=== PATIENT | female | born 1940 | race Caucasian/White ===

== ENCOUNTER 2017-08-10 07:36 | Outpatient (CLI) | payer MEDICARE, OTHER ==
[~2017-08-10] VITALS: Ht 154.9 cm; Wt 84.1 kg
--- NOTE | ~2017-08-10 | HEMODYNAMI ---
PATIENT:TRINI DOUGLAS MEDICAL RECORD: [id number] : 44 LOCATION:[facility] ADMISSION DATE: 08/10/17 Generatedon:08/10/201710:28 Patient name: TRINI DOUGLAS Patient #: [id number] SSN: : 1940 Date of study: 08/10/2017 Page: Of Hemodynamic Procedure Report Patient Data Patient Demographics Procedure consent was obtained First Name: TRINI Gender: Female Last Name: MISAEL : 1940 Patient #: [id number] Age: 76 year(s) Race: Unknown Additional ID: [id number] Contact details [address]: [address] [place] [address] State: [place] City: [place] Zip code: [address] Past Medical History Allergies Allergen Reaction Date Comments Reported Other allergy 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 Admission Admission Data Admission Date: 08/10/2017 Admission Time: 7:36 Lab Results Lab Result Date: 08/10/2017 Lab Result Time: 0:00 Biochemistry Name Units Result Min Max BUN mg/dl 12 --(-*--)-- 7 18 Creatinine mg/dl 0.6 --(*---)-- 0.6 1.3 CBC Name Units Result Min Max Hemoglobin g/dl 13.5 --(*---)-- 13.5 17.5 Procedure Procedure Types Cath Procedure Diagnostic Procedure [facility] w/Coronaries Sedation Charges Moderate Sedation up to 15 minutes PCI Procedure Coronary Stent Coronary Stent Initial Procedure Description Procedure Date Procedure Date: 08/10/2017 Procedure Start Time: 10:07 Procedure End Time: 10:27 Procedure Staff Name Function Gus Mahmood MD Performing Physician Nohemy Kumar RT Monitor Rico Bundy RN Nurse Evita Bacon RT Scrub Procedure Data Cath Procedure Fluoroscopy Diagnostic fluoroscopy Total fluoroscopy Time: 5.7 time: 5.7 min min Diagnostic fluoroscopy Total fluoroscopy dose: 680 dose: 680 mGy mGy Contrast Material Contrast Material Type Amount (ml) Isovue 300 110 Entry Location Entry Primary Successful Side Size Upsize Upsize Entry Closure Spivey ccessful Closure Location (Fr) 1 (Fr) 2 (Fr) Remarks Device Remarks Radial Right 6 Fr Mechanical artery Short Compression Estimated blood loss: 11 ml Diagnostic catheters Device Type Used For End Catheter Placement DIAGNOSTIC Glen 110cm 5 Procedure Fr catheter ([id number]) Procedure Complications No complications Procedure Medications Medication Administration Route Dosage 0.9% NaCl I.V. 100 ml/hr Oxygen NC 2 l/min Heparin Flush Bag added to field 2 bags (1000units/500ml NS) Lidocaine 2% added to field 20 Radial Cocktail added to field 1 syringe (Verapomil 2mg/Nitro 400mcg/Heparin 1500units) Versed 1 mg Fentanyl I.V. 50 mcg Fentanyl I.V. 25 mcg Versed I.V. 0.5 mg Radial Cocktail I.A. 1 syringe (Verapomil 2mg/Nitro 400mcg/Heparin 1500units) Heparin Bolus I.V. 4000 units Hemodynamics Rest HGB: 13.5 (g/dl) Heart Rate: 61 (bpm) Snapshots Pre Cath Intra NCS Post Cath Vital Signs Time Heart Resp SPO2 etCO2 NIBP (mmHg) Rhythm Pain Sedation Rate (ipm) (%) (mmHg) Status Level (bpm) 9:47:51 64 23 96 16.6 156/76(124) NSR 0 (11) 10(A) , No pain 9:52:27 63 14 94 1.5 134/71(106) NSR 0 (11) 10(A) , No pain 9:57:06 61 14 96 23.4 128/63(101) NSR 0 (11) 10(A) , No pain 10:01:42 61 15 96 17.3 129/65(98) NSR 0 (11) 10(A) , No pain 10:06:19 59 15 96 19.6 129/61(100) NSR 0 (11) 9(A) , No pain 10:10:57 63 13 92 9 122/59(84) NSR 0 (11) 9(A) , No pain 10:15:34 65 14 95 2.2 121/59(102) NSR 0 (11) 9(A) , No pain 10:20:37 68 14 96 4.5 159/83(128) NSR 0 (11) 9(A) , No pain 10:25:36 69 17 97 3 Measuring NSR 0 (11) 9(A) , No pain 10:25:50 66 16 97 3 166/79(132) NSR 0 (11) 9(A) , No pain Medications Time Medication Route Dose Verified Delivered Reason Note s Effectiveness by by 9:50:41 0.9% NaCl I.V. 100 Rico Rico Per physician ml/hr Niharika Bundy RN RN 9:50:51 Oxygen NC 2 l/min Rico Rico Per physician Niharika Bundy RN RN 9:51:02 Heparin Flush added 2 bags Rico Rico used for Bag to Niharika Bundy procedure (1000units/500ml RN RN NS) 9:51:14 Lidocaine 2% added 20ml Rico Rico for local to vial Lorigan Niharika anesthetic field RADER RN 9:51:26 Radial Cocktail added 1 Rico Rico used for (Verapomil to syringe Niharika Bundy procedure 2mg/Nitro field RADER RN 400mcg/Heparin 1500units) 10:03:34 Versed 1 mg Rico Rico for sedation Niharika Bundy RN RN 10:03:44 Fentanyl I.V. 50 mcg Rico Rico for sedation Niharika Bundy RN RN 10:05:34 Fentanyl I.V. 25 mcg Rico Rico for sedation Niharika Bundy RN RN 10:05:43 Versed I.V. 0.5 mg Rico Rico for sedation Niharika Bundy RN RN 10:08:36 Radial Cocktail I.A. 1 Rico Gus for (Verapomil syringe Niharika paul 2mg/Nitro RN 400mcg/Heparin 1500units) 10:12:41 Heparin Bolus I.V. 4000 Rico Rico for units Niharika Bundy anticoagulation RN cullet crusher and washer Log Time Note 9:36:03 Rico Bundy RN sent for patient. Start room use. 9:36:04 Time tracking: Regular hours 9:36:07 Plan of Care:Hemodynamics will remain stable., Cardiac rhythm will remain stable., Comfort level will be maintained., Respiratory function will remain adequate., Patient/ family verbilizes understanding of procedure., Procedure tolerated without complication., Recovers from procedure without complications.. 9:40:41 Patient received from Pre/Post Procedure Room to CCL 1 Alert and oriented. Tansferred to table in Supine position. 9:40:42 Warm blankets applied, and sherlyn hugger turned on for patient comfort. 9:40:42 Correct patient and procedure confirmed by team. 9:40:44 Signed procedure consent form obtained from patient. 9:40:44 ECG and BP/O2 sat monitors applied to patient. 9:47:04 Vital chart was started 9:47:07 Rhythm: sinus rhythm 9:50:41 0.9% NaCl 100 ml/hr I.V. was administered by Rico Bundy RN; Per physician; 9:50:51 Oxygen 2 l/min NC was administered by Rico Bundy RN; Per physician; 9:51:02 Heparin Flush Bag (1000units/500ml NS) 2 bags added to field was administered by Rico Bundy RN; used for procedure; 9:51:14 Lidocaine 2% 20ml vial added to field was administered by Rico Bundy RN; for local anesthetic; 9:51:26 Radial Cocktail (Verapomil 2mg/Nitro 400mcg/Heparin 1500units) 1 syringe added to field was administered by Rioc Bundy RN; used for procedure; 9:54:52 Baseline sample Acquired. 9:55:03 Full Disclosure recording started 9:55:22 H&P Date Dictated: 07/25/2017 Within 30 days and on chart.. 9:55:23 Pre-procedure instructions explained to patient. 9:55:24 Pre-op teaching completed and patient verbalized understanding. 9:55:26 Family in patients room. 9:55:27 Patient NPO since Midnight. 9:55:36 Patient allergic to Other allergyCRESTOR 9:55:38 Is the patient allergic to Iodine/contrast media? No. 9:55:40 Is patient on blood thinner?Yes 9:55:42 ACC The patient was administered the following blood thiners within the last 24 hours: ACCPlavix 9:55:44 Patient diabetic? Yes. 9:55:45 If diabetic: On Metformin? Yes 9:55:49 If on Metformin: Last Dose? 08/08/2017 9:55:51 Patient not . Patient is over age 55. 9:55:53 Previous problem with sedation/anesthesia? No ? 9:55:54 Snore? Yes 9:55:55 Sleep apnea? No 9:55:56 Deviated septum? No 9:55:57 Opens mouth fully? Yes 9:55:58 Sticks out tongue? Yes 9:55:59 Airway obstruction? No ? 9:56:02 Dentures? No ? 9:56:04 Modified Balta's test Ulnar < 7 seconds 9:56:07 Patient pain scale 0/10 ?. 9:56:21 IV patent on arrival in left antecubital with 0.9% NaCl at [facility]. 9:57:46 Lab Result : Creatinine 0.6 mg/dl 9:57:46 Lab Result : BUN 12 mg/dl 9:57:46 Lab Result : Hemoglobin 13.5 g/dl 9:57:49 Lab results completed and on chart. 9:57:52 Right Radial & Right Groin area was prepped with chlora-prep and draped in sterile fashion 9:57:53 Alarms reviewed by R. N. 9:57:54 Sharps counted by scrub and verified by R.N. 9:59:29 Zero performed for pressure channel P1 9:59:33 Zero performed for pressure channel P1 9:59:47 Use device set Radial Dx or PCI 9:59:50 ACIST Syringe (39040) opened to sterile field. 9:59:51 Bag Decanter (2002) opened to sterile field. 9:59:53 ACIST Hand Control (48259) opened to sterile field. 9:59:53 ACIST Manifold (56709) opened to sterile field. 9:59:54 Tegaderm 4 x 4 (1626W) opened to sterile field. 9:59:55 Medline Cath Pack ([id number]) opened to sterile field. 9:59:56 SHEATH 6FR Slender ([id number]) opened to sterile field. 9:59:56 DIAGNOSTIC WIRE .035 260cm J wire (748452) opened to sterile field. 9:59:57 MBrace Wrist Support ([id number]) opened to sterile field. 10:00:49 Zero performed for pressure channel P1 10:00:53 Zero performed for pressure channel P1 10:03:13 --------ALL STOP TIME OUT------ 10:03:14 Final Timeout: patient, procedure, and site verified with staff and physician. All members of the team are in agreement. 10:03:16 Right Radial & Right Groin site verified by team. 10:03:23 Physical assessment completed. ASA score P 2 - A patient with mild systemic disease as per Gus Mahmood MD. 10:03:27 Sedation plan: IV Moderate Sedation Medication:Versed, Fentanyl 10:03:34 Versed 1 mg was administered by Rico Bundy RN; for sedation; 10:03:44 Fentanyl 50 mcg I.V. was administered by Rico Bundy RN; for sedation; 10:05:34 Fentanyl 25 mcg I.V. was administered by Rico Bundy RN; for sedation; 10:05:43 Versed 0.5 mg I.V. was administered by Rico Bundy RN; for sedation; 10:06:51 Procedure started. 10:07:25 Local anesthetic to right radial artery with Lidocaine 2% by Gus Mahmood MD.INITIAL ACCESS ONLY 10:07:49 A 6 Fr Short sheath was inserted into the Right Radial artery 10:08:04 A DIAGNOSTIC Glen 110cm 5 Fr catheter (059135) was advanced over the wire and used for Procedure. 10:08:36 Radial Cocktail (Verapomil 2mg/Nitro 400mcg/Heparin 1500units) 1 syringe I.A. was administered by Gus Mahmood MD; for vasodilation; 10:08:42 LV gram done using EAGLE 10:08:45 Injector settings: Ml/sec: 5, Volume: 15, 10:09:22 EF : 60 % 10:09:52 LCA angiography performed. 10:10:42 RCA angiography performed. 10:10:43 Catheter removed. 10:10:58 INFLATOR Merit BasixCompak (UM4063) opened to sterile field. 10:11:51 GUIDE 6FR XBLAD 3.5 catheter (98868933) opened to sterile field. 10:11:52 CHOICE PT Extra Support 182cm wire ([id number]) opened to sterile field. 10:12:09 6 Fr XBLAD 3.5 guide catheter was inserted over the wire 10:12:41 Heparin Bolus 4000 units I.V. was administered by Rico Bundy RN; for anticoagulation; 10:12:54 CHOICE PT ES 182 wire advanced. 10:13:56 WIRE REMOVED 10:14:16 CHOICE PT Extra Support 182cm wire ([id number]) opened to sterile field. 10:14:32 CHOICE PT ES 182 wire advanced. 10:14:56 Wire advanced across lesion. 10:16:08 The FRANSICO RX 2.25 x 26 stent ([id number]) was advanced then removed because of failure to cross lesion 10:17:14 WILL BALLOON FIRST 10:18:21 Inflation number: 1 A EUPHORA 2.0 x 30 Balloon ([id number]) was prepped and advanced across the Mid LAD, then inflated to 17 ANDREA for 0:10 (min:sec). 10:18:42 Inflation number: 2 The EUPHORA 2.0 x 30 Balloon ([id number]) was reinflated across the Mid LAD, to 19 ANDREA for 0:10 (min:sec). 10:18:57 Balloon removed over the wire. 10:20:16 Inflation Number: 3 A FRANSICO RX 2.25 x 26 stent ([id number]) was prepped and advanced across the Mid LAD. The stent was deployed at 13 ANDREA for 0:10 (min:sec). 10:20:57 Stent catheter was removed intact over wire. 10:22:40 Inflation Number: 1 A FRANSICO RX 2.5 x 18 stent ([id number]) was prepped and advanced across the Prox LAD. The stent was deployed at 13 ANDREA for 0:10 (min:sec). 10:22:47 Stent catheter was removed intact over wire. 10:22:48 Wire removed. 10:22:49 Guide catheter removed. 10:23:12 TR BAND Standard ([id number]) opened to sterile field. 10:23:21 Sheath removed intact; hemostasis achieved with Mechanical Compression to the Right Radial artery. 10:23:47 Procedure ended.(Physican Out) 10:24:17 Fluoroscopy time 05.70 minutes. 10:24:21 Fluoroscopy dose: 680 mGy 10:24:21 Flurop Dose total: 680 10:24:25 Contrast amount:Isovue 300 110ml. 10:24:27 Sharps counted by scrub and verified by R.N. 10:24:29 TR band inflated with 10cc of air. 10:24:42 Post-procedure physical assessment completed. ASA score P 2 - A patient with mild systemic disease as per Gus Mahmood MD. 10:24:46 Post procedure rhythm: unchanged. 10:24:50 Estimated blood loss: 11 ml 10:24:51 Post procedure instruction explained to patient.Patient verbalizes understanding. 10:24:52 Patient needs reinforcement of post procedure teaching. 10:26:39 Procedure type changed to Cath procedure, Diagnostic procedure, LHC, LHC w/Coronaries, Sedation Charges, Moderate Sedation up to 15 minutes, PCI procedure, Coronary Stent, Coronary Stent Initial 10:27:33 Procedure and supply charges have been captured, reviewed, submitted and are correct. 10:27:36 Procedure Complication : No complications 10:27:38 Vital chart was stopped 10:27:39 See physician's report for complete and final results. 10:27:40 Report given to Pre/Post Procedure Room. 10::43 Patient transfered to Pre/Post Procedure Room with Bed. 10:27:45 Procedure ended. 10:27:45 Full Disclosure recording stopped 10:27:47 End room use (Document Last) Intervention Summary Intervention Notes Time ActionType Lesion and Equipment Used Action# Pressure Duration Attributes 10:16:08 Discard FRANSICO RX 2.25 x Stent 26 stent ([id number]) 10:18:21 Inflate Mid LAD EUPHORA 2.0 x 1 17 00:10 balloon 30 Balloon ([id number]) 10:18:42 Reinflate Mid LAD EUPHORA 2.0 x 2 19 00:10 balloon 30 Balloon ([id number]) 10:20:16 Place stent Mid LAD FRANSICO RX 2.25 x 3 13 00:10 26 stent ([id number]) 10:22:40 Place stent Prox LAD FRANSICO RX 2.5 x 1 13 00:10 18 stent ([id number]) Device Usage Item Name Manufacture Quantity Catalog Number Hospital Part Current M inimal Lot# / Charge Number Stock Stock Serial# Code ACIST Syringe Acist 1 69799 283701 015703 270171 2 0 (94926) Medical Systems Inc Bag Decanter Microtek 1 193659 71616 371845 5 () Medical Inc. ACIST Hand Acist 1 98866 387682 223288 248514 5 Control Medical (67692) Systems Inc ACIST Manifold Acist 1 99349 440222 587923 912521 5 (69220) Medical Systems Inc Tegaderm 4 x 4 3M 1 1626W 264584 756824 787521 5 (1626W) Medline Cath Cardinal 1 [id number] 292561 30886 279266 5 Pack Health ([id number]) SHEATH 6FR Terumo 1 [id number] 191095 519935 110680 4 0 Slender ([id number]) DIAGNOSTIC St Tai 1 906445 856273 080679 804981 3 0 WIRE .035 260cm J wire (615369) MBrace Wrist Advanced 1 140-0250-00 982050 93057 156411 5 Support Vascular ([id number]) Dynamics DIAGNOSTIC Terumo 1 40-7253 975316 427514 100904 5 Glen 110cm 5 Fr catheter (095846) INFLATOR Merit Merit 1 JO1069 359139 861082 224714 1 5 OchreSoft Technologies[employer]El[employer] Software Medical (PU1995) GUIDE 6FR Cardinal 1 [id number] 410494 861528 911925 1 0 XBLAD 3.5 Health catheter (19706047) CHOICE PT [place] 2 [id number] 747717 570542 383194 5 Extra Support Scientific 182cm wire ([id number]) FRANSICO RX 2.25 x Medtronic 1 [id number] 922771 5512905 088982 5 [id number] 26 stent ([id number]) EUPHORA 2.0 x Medtronic 1 [id number] 435687 210955 452575 5 [id number] 30 Balloon ([id number]) FRANSICO RX 2.5 x Medtronic 1 [id number] 542775 5616643 614612 5 [id number] 18 stent ([id number]) TR BAND Terumo 1 [id number] 937535 269145 838280 4 0 Standard ([id number]) Signature Audit [place] Stage Time Signature Unsigned Intra-Procedure 08/10/2017 Nohemy Kumar 10:28:03 AM RT(R) Signatures Monitor : Nohemy Kumar Signature : RT Date : Time : [facility] [address] [place] [address]
--- NOTE | ~2017-08-10 | OP ---
PATIENT NAME: TRINI DOUGLAS MEDICAL RECORD: [id number] :44 LOCATION:D.CAT ADMISSION DATE: SURGEON: JOSÉ LUIS JONES MD DATE OF OPERATION: 08/10/2017 PROCEDURES: 1. PTCA stent LAD. 2. Left heart catheterization. 3. Selective coronary angiography. 4. Left ventriculogram. INDICATION: Angina and coronary artery disease. PROCEDURE IN DETAIL: After informed consent was obtained and after detailed explanation of risks, benefits as well as alternative therapies, the patient elected to proceed with angiogram and angioplasty. The right radial area was prepped and draped in normal sterile fashion. Right radial artery was cannulated via modified Seldinger technique with placement of 6-[place] sheath. All catheters exchanged through this sheath. FINDINGS: The left ventriculogram was performed in the standard 30-degree EAGLE view and reveals good cardiac wall motion throughout all segments. Overall ejection fraction is estimated at 60%. SELECTIVE CORONARY ANGIOGRAPHY: 1. Left main showed no significant angiographic disease. 2. Left anterior descending has a long area of multiple 80% to 90% stenoses. 3. Left circumflex shows moderate irregularities, but no discrete flow-limiting stenosis. 4. Right coronary has at least 2-3 areas of 70% greater stenosis. PTCA STENT OF THE LAD: The stents used were 2.25 x 26 and 2.5 x 18, both [place] stents. Result was 0% residual stenosis. OVERALL IMPRESSION: Successful PTCA stent of the LAD going from multiple areas of 80% to 90% stenosis to 0% residual stenosis. PLAN: PTCA stent of the RCA in the near future. TRANSINT:[id number] Voice Confirmation ID: [id number] DOCUMENT ID: [id number] JOSÉ LUIS JONES MD at 1153 CC: [id number] DICTATION DATE: 08/10/17 1028 LINING CLEANER: 08/10/17 1108 DEP CLI 08/10/[address] [address]
[2017-08-10] MEDS ORDERED: GLUCOPHAGE500 MG PO (08:34)
[2017-08-10] MEDS ORDERED: TRAZODONE HCL50 MG PO (08:34)
[2017-08-10] MEDS ORDERED: ZANTAC 7575 MG PO (08:35)
[2017-08-10] MEDS ORDERED: OMEPRAZOLE20 M1 PO (08:35)
[2017-08-10] MEDS ORDERED: PLAVIX75 MG PO ×2 (08:35→11:10)
[2017-08-10] MEDS ORDERED: CO Q-10100 MG PO (08:36)
[2017-08-10] MEDS ORDERED: PRAVACHOL40 MG PO (08:36)
[2017-08-10] MEDS ORDERED: OMEGA 3 FISH OI1 CAP PO (08:37)
[2017-08-10] MEDS ORDERED: CINNAMON500 MG PO (08:37)
[2017-08-10 08:48] VITALS: BP 166/60; Ht 154.9 cm; Wt 84.1 kg
[2017-08-10 08:52] LABS: BASOPHILS 0.1 % (0-2); EOSINOPHILS 3.1 % (0-7); HEMATOCRIT 40.2 % (36.0-48.0); HEMOGLOBIN 13.5 g/dL (12-16); IMMATURE GRANULOCYTES 0.1 % (0-5); MCHC 33.6 g/dL (31.0-37.0); MCV 89.3 fL (80.0-100.0); MEAN PLATELET VOLUME 10.5 fL (7.4-10.4); MONOCYTES 7.8 % (2-11); NEUTROPHILS 57.9 % (40-80); PLATELET COUNT 146 10x3/uL (130-400); RDW 12.4 % (11.5-14.5); WBC 7.7 10x3/uL (4.8-10.8)
[2017-08-10 09:11] LABS: CALC OSMOLALITY 281 mosm/kg (275-300); CALCIUM 9.3 mg/dL (8.5-10.1); CARBON DIOXIDE 26.5 mmol/L (21.0-32.0); CHLORIDE - SERUM 103 mmol/L (98-107); CREATININE - SERUM 0.6 mg/dL (0.6-1.3); GLUCOSE 122 mg/dL (74-106); POTASSIUM - SERUM 4.4 mmol/L (3.5-5.1); SODIUM 141 mmol/L (136-145); UREA NITROGEN 12 mg/dL (7-18); eGFR NON AFRICAN AMERICAN > 90 mL/min (90-120)
[2017-08-10] MEDS ORDERED: BAYER CHEWABLE81 MG PO ×2 (11:12→11:13)
== END 2017-08-10 15:41 | disposition home or self-care (01) ==
LOC: D.CATH 07:36
PROVIDERS: Internal Medicine Interventional Cardiology
DX: I20.9 Angina pectoris, unspecified (principal); E78.5 Hyperlipidemia, unspecified; E66.9 Obesity, unspecified; Z01.812 Encounter for preprocedural laboratory examination
CPT/HCPCS: 93458; C9600

== ENCOUNTER → 2017-08-12 08:26 | Outpatient (CLI) | payer MEDICARE, OTHER ==
[~2017-08-12] VITALS: Ht 154.9 cm; Wt 82.7 kg
--- NOTE | ~2017-08-12 | HP ---
PATIENT: TRINI DOUGLAS MEDICAL RECORD: [id number] ACCOUNT: [id number] LOCATION:[facility]OS[facility] : 44 ADMISSION DATE: 08/12/17 HISTORY AND PHYSICAL EXAMINATION ADMITTING DIAGNOSES: 1. Angina. 2. Coronary artery disease. 3. Recent PTCA stent to LAD with concomitant disease to RCA. 4. Hypertension. 5. Hyperlipidemia. HISTORY OF PRESENT ILLNESS: Mrs. Douglas presented with unstable anginal symptomatology, found to have 2-vessel coronary artery disease, underwent successful PTCA stent of the LAD. She is now brought back for PTCA stent of the RCA. PHYSICAL EXAMINATION: GENERAL APPEARANCE: Well-nourished, well-developed, appears stated age. Level of distress, comfortable. PSYCHIATRIC: Mental status, alert, normal affect. Orientation, oriented to time, place and person. EYES: Lids and conjunctiva, noninjected. No discharge, no pallor. ENT: Lips, teeth, gums, normal dentition. Oropharynx, no cyanosis, no pallor. NECK: Carotid arteries, bilateral normal upstroke, no bruits, no thrills. JUGULAR VEINS: No jugular venous pressure or distention. CERVICAL LYMPH NODES: Nontender, nonenlarged. THYROID: Not enlarged. Nontender. No nodules. LUNGS: Respiratory effort, unlabored. CHEST: Normal curvature. No thoracic deformity. No chest wall tenderness. Percussion, resonant. Auscultation, clear. No wheezes, no rales, no rhonchi. CARDIOVASCULAR: Precordial exam, nondisplaced. No heaves or pericardial thrills. Rate and rhythm, regular. Heart sounds, normal S1, normal S2. No S3, no gallop, no rub. Systolic murmur, not heard. Diastolic murmur, not heard. EXTREMITIES: No cyanosis, no edema. Peripheral pulses, full and equal in all extremities, except as noted. No bruits appreciated. ABDOMEN: Soft, nondistended. Normal aorta. No bruit. Nontender. No masses. Liver, nontender, no hepatomegaly. Spleen, nontender, no splenomegaly. MUSCULOSKELETAL: No joint tenderness. No joint swelling. No erythema. NEUROLOGICAL: Normal gait, normal strength, normal tone. SKIN: Warm and dry. REVIEW OF SYSTEMS: The patient reports easy bruising but reports no swollen glands. The patient reports no fever, no night sweats, no significant weight gain, no significant weight loss. No significant exercise tolerance. The patient reports no dry eyes, no irritation, no vision change. Patient reports no difficulty hearing and no ear pain. Patient reports no frequent nose bleeds or nose and sinus problems. Patient reports on arm pain on exertion. No shortness of breath while lying down. No history of heart murmur. Patient reports no cough, no wheezing or coughing up blood. Patient reports no abdominal pain, no vomiting. Normal appetite. No diarrhea and not vomiting blood. No nausea and no constipation. Patient reports no incontinence. No difficulty urinating. No hematuria. No increased frequency. Patient reports no muscle aches. No weakness, no arthralgias, no back pain. No swelling of the extremities. Patient reports no abnormal mole, no jaundice, no rashes. Reports HISTORY AND PHYSICAL [id number] DMITRIY DOUGLASLDA R no loss of consciousness. No weakness and no numbness. No seizures, dizziness, or headaches. The patient reports no depression, no sleep disturbance, feeling safe in a relationship and no alcohol abuse. Patient reports on fatigue. Reports no runny nose or sinus pressure. No itching, no hives, and no frequent sneezing. OVERALL IMPRESSION: Anginal symptomatology with significant disease of the RCA. We will proceed with transcatheter revascularization of the RCA. TRANSINT:[id number] Voice Confirmation ID: [id number] DOCUMENT ID: [id number] JOSÉ LUIS JONES MD at 1153 CC: [id number] DICTATION DATE: 08/12/17 1040 RELIABILITY MANAGER: 08/12/17 1056 [facility] [address] [place] [address]
--- NOTE | ~2017-08-12 | OP ---
PATIENT NAME: TRINI DOUGLAS MEDICAL RECORD: [id number] :44 LOCATION:D.CAT ADMISSION DATE: SURGEON: JOSÉ LUIS JONES MD DATE OF OPERATION: 08/12/2017 PROCEDURES: 1. PTCA stent to RCA. 2. Selective coronary angiography. INDICATION: Angina and coronary artery disease. PROCEDURE IN DETAIL: After informed consent was obtained and after a detailed explanation of the risks, benefits as well as alternative therapies, the patient elected to proceed with angiogram and angioplasty. The right femoral area was prepped and draped in normal sterile fashion. Right femoral artery was cannulated via modified Seldinger technique with placement of 6-[place] sheath. All catheters exchanged through this sheath. FINDINGS: The right coronary artery has multiple areas of greater than 80% stenosis. This was addressed with a 3.5 x 15 and 3.0 x 12, both Porfirio stents. Result was 0% residual stenosis. OVERALL IMPRESSION: Successful percutaneous transluminal coronary angioplasty stent of the right coronary artery going from 80% initial stenosis to 0% residual. TRANSINT:[id number] Voice Confirmation ID: [id number] DOCUMENT ID: [id number] JOSÉ LUIS JONES MD at 1153 CC: [id number] DICTATION DATE: 08/12/17 1134 BOOKKEEPER RECEPTIONIST: 08/12/17 1141 [facility] [place] [id number] [place] [id number]
--- NOTE | ~2017-08-12 | HEMODYNAMI ---
PATIENT:TRINI DOUGLAS MEDICAL RECORD: [id number] : 44 LOCATION:[facility] ADMISSION DATE: 08/12/17 Generatedon:08/12/201711:36 Patient name: TRINI DOUGLAS Patient #: [id number] : 1940 Date of study: 08/12/2017 Page: Of Hemodynamic Procedure Report Patient Data Patient Demographics Procedure consent was obtained First Name: TRINI Gender: Female Last Name: MISAEL : 1940 [facility] Initial: R Age: 76 year(s) Patient #: [id number] Race: SSN: [id number] Additional ID: [id number] Contact details [address]: [address] [place] [address] State: [place] City: [place] Zip code: [address] Past Medical History Allergies Allergen Reaction Date Comments Reported Other allergy 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 Admission Admission Data Admission Date: 08/12/2017 Admission Time: 8:26 Arrival Date: 08/12/2017 Arrival Time: 10:30 Admit Source: Other Insurance Payor: Medicare Height (in.): 61 BSA: 1.84 (m2) Height (cm.): 154.94 BMI: 35.33 (kg/m2) Weight (lbs.): 187 Weight (kg.): 84.82 Lab Results Lab Result Date: 08/10/2017 Lab Result Time: 0:00 Biochemistry Name Units Result Min Max BUN mg/dl 12 --(-*--)-- 7 18 Creatinine mg/dl 0.6 --(*---)-- 0.6 1.3 CBC Name Units Result Min Max Hemoglobin g/dl 13.5 --(*---)-- 13.5 17.5 Procedure Procedure Types Cath Procedure Diagnostic Procedure Sedation Charges Moderate Sedation up to 15 minutes PCI Procedure Coronary Stent Coronary Stent Initial Procedure Description Procedure Date Procedure Date: 08/12/2017 Procedure Start Time: 11:16 Procedure End Time: 11:31 Procedure Staff Name Function Gus Mahmood MD Performing Physician Shyanne Angeles RT Monitor Danica Guzman RT Scrub Tacos Licona RN Nurse Procedure Data Cath Procedure Fluoroscopy Diagnostic fluoroscopy Total fluoroscopy Time: 5.9 time: 5.9 min min Diagnostic fluoroscopy Total fluoroscopy dose: 444 dose: 444 mGy mGy Contrast Material Contrast Material Type Amount (ml) Isovue 300 69 Entry Location Entry Primary Successful Side Size Upsize Upsize Entry Closure Succes sful Closure Location (Fr) 1 (Fr) 2 (Fr) Remarks Device Remarks Femoral Right 7 Fr Exoseal artery Short Estimated blood loss: 5 ml Procedure Complications No complications Procedure Medications Medication Administration Route Dosage Oxygen NC 2 l/min Heparin Flush Bag added to field 2 bags (1000units/500ml NS) 0.9% NaCl I.V. 100 ml/hr Fentanyl I.V. 50 mcg Versed I.V. 1 mg Fentanyl I.V. 50 mcg Versed I.V. 1 mg Heparin Bolus I.V. 4000 units Hemodynamics Rest BSA: 1.84 (m2) HGB: 13.5 (g/dl) O2 Consumption: Estimated: 158.93 (ml/min) O2 Co nsumption indexed: Estimated:86.37 (ml/min/m) Heart Rate: 57 (bpm) Snapshots Pre Cath Intra NCS Post Cath Vital Signs Time Heart Resp SPO2 etCO2 NIBP (mmHg) Rhythm Pain Sedation Rate (ipm) (%) (mmHg) Status Level (bpm) 10:55:39 56 15 97 36.5 146/60(114) NSR 0 (11) 10(A) , No pain 10:59:53 57 17 99 39.4 128/62(107) NSR 0 (11) 10(A) , No pain 11:04:13 58 16 99 38 128/56(101) NSR 0 (11) 10(A) , No pain 11:08:27 59 16 99 33.5 122/60(88) NSR 0 (11) 9(A) , No pain 11:12:39 56 15 98 38 121/61(87) NSR 0 (11) 9(A) , No pain 11:16:53 59 17 98 38 140/67(109) NSR 0 (11) 9(A) , No pain 11:22:00 62 16 98 13.4 127/58(109) NSR 0 (11) 9(A) , No pain 11:26:14 65 16 98 40.2 128/69(99) NSR 0 (11) 9(A) , No pain 11:31:23 65 15 98 36.5 166/71(133) NSR 0 (11) 9(A) , No pain Medications Time Medication Route Dose Verified Delivered Reason Notes Effectiveness by by 10:59:39 Oxygen NC 2 Gus Balderrama Per physician l/min Timoteo Licona RN 10:59:46 Heparin Flush added 2 Gus Balderrama used for Bag to bags Timoteo Licona RN procedure (1000units/500ml field NS) 10:59:54 0.9% NaCl I.V. 100 Gus Wongy Per physician ml/hr Timoteo Licona RN 11:05:04 Fentanyl I.V. 50 Gus Balderrama for sedation mcg Timoteo Licona RN 11:05:11 Versed I.V. 1 mg Gus Balderrama for sedation Timoteo Licona RN 11:15:45 Fentanyl I.V. 50 Gus Balderrama for sedation mcg Timoteo Licona RN 11:15:49 Versed I.V. 1 mg Gus Balderrama for sedation Timoteo Licona RN 11:25:06 Heparin Bolus I.V. 4000 Gus Balderrama for units Timoteo Licona RN anticoagulation Procedure Log Time Note 10:34:08 Tacos Licona RN sent for patient. Start room use. 10:34:09 Time tracking: Regular hours 10:34:15 Plan of Care:Hemodynamics will remain stable., Cardiac rhythm will remain stable., Comfort level will be maintained., Respiratory function will remain adequate., Patient/ family verbilizes understanding of procedure., Procedure tolerated without complication., Recovers from procedure without complications.. 10:36:07 Informed consent obtained and on chart 10:41:03 Diagnostic Cath Status : Elective 10:41:15 Patient Height : 61 inches 10:41:18 Patient Weight : 187 lbs 10:41:19 Admit Source: Other 10:41:26 Arrival Date: 08/12/2017 10:30:00 AM 10:41:32 Insurance Payor : Medicare 10:46:33 Patient received from Pre/Post Procedure Room to CCL 2 Alert and oriented. Tansferred to table in Supine position. 10:46:34 Warm blankets applied, and sherlyn hugger turned on for patient comfort. 10:46:34 Correct patient and procedure confirmed by team. 10:46:35 ECG and BP/O2 sat monitors applied to patient. 10:54:28 Vital chart was started 10:54:35 Baseline sample Acquired. 10:54:39 Rhythm: sinus rhythm 10:54:41 Full Disclosure recording started 10:54:49 H&P Date Dictated: 07/25/2017 Within 30 days and on chart., H&P Addendum completed by physician on day of procedure. (MUST COMPLETE FOR ALL OUTPATIENTS). 10:54:51 Pre-procedure instructions explained to patient. 10:54:51 Pre-op teaching completed and patient verbalized understanding. 10:54:52 Family in waiting room. 10:54:53 Patient NPO since Midnight. 10:54:56 Is the patient allergic to Iodine/contrast media? No. 10:54:57 Was the patient premedicated? No 10:54:59 Is patient on blood thinner?Yes 10:55:02 ACC The patient was administered the following blood thiners within the last 24 hours: ACCPlavix 10:55:04 Patient diabetic? Yes. 10:55:05 If diabetic: On Metformin? Yes 10:55:13 If on Metformin: Last Dose? 08/08/2017 10:55:16 Previous problem with sedation/anesthesia? No ? 10:55:17 Snore? Yes 10:55:18 Sleep apnea? No 10:55:19 Deviated septum? No 10:55:21 Opens mouth fully? Yes 10:55:24 Sticks out tongue? Yes 10:55:28 Airway obstruction? No ? 10:55:31 Dentures? No ? 10:55:33 Pre procedure: right dorsailis pedis pulse 1+ Palpable, but thready & weak; easily obliterated 10:55:36 Pre procedure: left dorsailis pedis pulse 1+ Palpable, but thready & weak; easily obliterated 10:55:38 Patient pain scale 0/10 ?. 10:55:44 IV patent on arrival in left forearm with 0.9% NaCl at KVO. 10:55:49 Lab results completed and on chart. 10:55:52 Right groin area was prepped with chlora-prep and draped in sterile fashion 10:55:53 Alarms reviewed by R. N. 10:55:54 Sharps counted by scrub and verified by R.N. 10:59:39 Oxygen 2 l/min NC was administered by Tacos Licona RN; Per physician; 10:59:46 Heparin Flush Bag (1000units/500ml NS) 2 bags added to field was administered by Tacos Licona RN; used for procedure; 10:59:54 0.9% NaCl 100 ml/hr I.V. was administered by Tacos Licona RN; Per physician; 11:04:44 Physician arrived 11:04:44 --------ALL STOP TIME OUT------ 11:04:45 Final Timeout: patient, procedure, and site verified with staff and physician. All members of the team are in agreement. 11:04:51 Right groin site verified by team. 11:04:55 Physical assessment completed. ASA score P 2 - A patient with mild systemic disease as per Gus Mahmood MD. 11:04:58 Sedation plan: IV Moderate Sedation Medication:Versed, Fentanyl 11:05:02 Zero performed for pressure channel P1 11:05:04 Fentanyl 50 mcg I.V. was administered by Tacos Licona RN; for sedation; 11:05:11 Versed 1 mg I.V. was administered by Tacos Licona RN; for sedation; 11:05:14 Use device set Femoral Dx 11:05:15 ACIST Syringe (74991) opened to sterile field. 11:05:16 Bag Decanter (2002) opened to sterile field. 11:05:16 Medline Cath Pack ([id number]) opened to sterile field. 11:05:18 DIAGNOSTIC WIRE .035 260cm J wire (904712) opened to sterile field. 11:05:19 ACIST Hand Control (97331) opened to sterile field. 11:05:20 ACIST Manifold (38945) opened to sterile field. 11:05:20 DIAGNOSTIC Multipack 5Fr catheter set (KI2557) opened to sterile field. 11:05:21 Tegaderm 4 x 4 (1626W) opened to sterile field. 11:05:35 SHEATH 7FR [place] (ZWE268) opened to sterile field. 11:05:37 EXOSEAL 7Fr (EX700) opened to sterile field. 11:05:50 GUIDE 7FR [place] 2.0 SH catheter ([id number]) opened to sterile field. 11:15:45 Fentanyl 50 mcg I.V. was administered by Tacos Licona RN; for sedation; 11:15:49 Versed 1 mg I.V. was administered by Tacos Licona RN; for sedation; 11:16:14 Procedure started. 11:16:19 Local anesthetic to right femoral artery with Lidocaine 2% by Gus Mahmood MD.INITIAL ACCESS ONLY 11:16:31 A 7 Fr Short sheath was inserted into the Right Femoral artery 11:18:16 6 Fr ar 2 sh guide catheter was inserted over the wire 11:18:41 choice pt wire advanced. 11:23:18 Wire advanced across lesion. 11:25:06 Heparin Bolus 4000 units I.V. was administered by Tacos Licona RN; for anticoagulation; 11:25:40 Inflation Number: 1 A FRANSICO RX 3.0 x 12 stent ([id number]) was prepped and advanced across the Dist RCA. The stent was deployed at 17 ADNREA for 0:10 (min:sec). 11:25:45 Stent catheter was removed intact over wire. 11::57 Inflation Number: 1 A FRANSICO RX 3.5 x 15 stent ([id number]) was prepped and advanced across the Mid RCA. The stent was deployed at 13 ANDREA for 0:10 (min:sec). 11:28:04 Inflation number: 2 The stent balloon was then re-inflated across the Mid RCA to 21 ANDREA for 0:10 (min:sec). 11:28:54 Stent catheter was removed intact over wire. 11:28:55 Wire removed. 11:28:55 Guide catheter removed. 11:29:04 Sheath removed intact; hemostasis achieved with Exoseal to the Right Femoral artery. 11:29:06 Procedure ended.(Physican Out) 11:29:43 Fluoroscopy time 05.90 minutes. 11:29:50 Flurop Dose total: 444 11:29:50 Fluoroscopy dose: 444 mGy 11:29:57 Contrast amount:Isovue 300 69ml. 11:30:01 Sharps counted by scrub and verified by R.N. 11:30:04 Insertion/operative site no bleeding no hematoma. 11:30:08 Post-op/insertion site Right Femoral artery dressed using a 4 x 4 and Tegaderm. 11:30:10 Post right femoral artery:stable 11:30:12 Post Procedure Pulses reassessed and unchanged 11:30:14 Post procedure rhythm: unchanged. 11:30:17 Estimated blood loss: 5 ml 11:30:18 Post procedure instruction explained to patient.Patient verbalizes understanding. 11:30:18 Patient needs reinforcement of post procedure teaching. 11:31:23 Procedure type changed to Cath procedure, Diagnostic procedure, Sedation Charges, Moderate Sedation up to 15 minutes, PCI procedure, Coronary Stent, Coronary Stent Initial 11:31:24 Procedure and supply charges have been captured, reviewed, submitted and are correct. 11:31:28 Procedure Complication : No complications 11:31:30 Vital chart was stopped 11:31:31 See physician's report for complete and final results. 11:31:33 Report given to Pre/Post Procedure Room. 11:31:36 Patient transfered to Pre/Post Procedure Room with Stretcher. 11:31:37 Procedure ended. 11:31:37 Full Disclosure recording stopped 11:31:44 ACC-PCI Only Patient was given prescriptions, or instructed by Gus Mahmood MD to start/continue the following medications upon discharge: Plavix 11:31:45 End room use (Document Last) Intervention Summary Intervention Notes Time ActionType Lesion and Equipment Used Action# Pressure Duration Attributes 11:25:40 Place stent Dist RCA FRANSICO RX 3.0 x 1 17 00:10 12 stent ([id number]) 11:27:57 Place stent Mid RCA FRANSICO RX 3.5 x 1 13 00:10 15 stent ([id number]) 11:28:04 Reinflate Mid RCA FRANSICO RX 3.5 x 2 21 00:10 stent 15 stent balloon ([id number]) Device Usage Item Name Manufacture Quantity Catalog Hospital Part [facility] Lot# / Number Charge Number Stock Stock Serial# Code ACIST Syringe Acist 1 65750 381676 646905 486197 20 (94092) [employer] Systems Inc Bag Decanter Microtek 1 611068 07854 433164 5 () Medical Inc. Medline Cath Cardinal 1 [id number] 822296 43449 100584 5 [facility] ([id number]) DIAGNOSTIC St Tai 1 099885 035544 970995 340526 30 WIRE .035 260cm J wire (556674) ACIST Hand Acist 1 85855 707257 040423 625645 5 Control Medical (05707) Systems Inc ACIST Manifold Acist 1 31679 202664 461986 922706 5 (83249) Medical Systems Inc DIAGNOSTIC Cardinal 1 OD8211 634225 17896 900384 30 Multipack 5Fr Health catheter set ([id number]) Tegaderm 4 x 4 3M 1 1626W 260218 004403 252341 5 (1626W) SHEATH 7FR Terumo 1 PIJ713 586436 169954 778204 5 [place] (LXL090) EXOSEAL 7Fr Cardinal 1 EX700 759500 032037 137933 5 (EX700) Health GUIDE 7FR AR Medtronic 1 [id number] 658113 590886 944339 0 2.0 SH catheter ([id number]) FRANSICO RX 3.0 x Medtronic 1 [id number] 160449 9532795 559849 5 [id number] 12 stent ([id number]) FRANSICO RX 3.5 x Medtronic 1 [id number] 254922 2379855 385208 5 [id number] 15 stent ([id number]) Signature Audit [place] Stage Time Signature Unsigned Intra-Procedure 08/12/2017 Shyanne Angeles 11:35:59 AM RT(R) Signatures Monitor : Shyanne Angeles RT Signature : Date : Time : [facility] [address], [place] [address]
[~2017-08-12 08:26] MED LIST: BAYER CHEWABLE81 MG PO; CINNAMON500 MG PO; CO Q-10100 MG PO; GLUCOPHAGE500 MG PO; OMEGA 3 FISH OI1 CAP PO; OMEPRAZOLE20 M1 PO; PLAVIX75 MG PO; PRAVACHOL40 MG PO; TRAZODONE HCL50 MG PO; ZANTAC 7575 MG PO
[2017-08-12 09:17] LABS: BASOPHILS 0.4 % (0-2); EOSINOPHILS 3.4 % (0-7); HEMATOCRIT 40.1 % (36.0-48.0); HEMOGLOBIN 13.6 g/dL (12-16); LYMPHOCYTES 34.8 % (15-50); MCH 30.2 pg (26.0-34.0); MCHC 33.9 g/dL (31.0-37.0); MCV 88.9 fL (80.0-100.0); MEAN PLATELET VOLUME 10.7 fL (7.4-10.4); MONOCYTES 8.3 % (2-11); NEUTROPHILS 53.1 % (40-80); PLATELET COUNT 152 10x3/uL (130-400); RBC 4.51 10x6/uL (4.00-5.40); RDW 12.6 % (11.5-14.5); WBC 5.5 10x3/uL (4.8-10.8)
[2017-08-12 09:28] VITALS: BP 125/72; Ht 154.9 cm; Wt 82.7 kg
[2017-08-12 09:31] LABS: CALC OSMOLALITY 278 mosm/kg (275-300); CALCIUM 9.9 mg/dL (8.5-10.1); CARBON DIOXIDE 25.7 mmol/L (21.0-32.0); CHLORIDE - SERUM 105 mmol/L (98-107); CREATININE - SERUM 0.7 mg/dL (0.6-1.3); GLUCOSE 133 mg/dL (74-106); POTASSIUM - SERUM 3.8 mmol/L (3.5-5.1); SODIUM 139 mmol/L (136-145); UREA NITROGEN 10 mg/dL (7-18); eGFR NON AFRICAN AMERICAN 87 mL/min (90-120)
== END | disposition home or self-care (01) ==
LOC: D.CATH 08:26
PROVIDERS: Internal Medicine Interventional Cardiology
DX: I25.119 Atherosclerotic heart disease of native coronary artery with unspecified angina pectoris (principal); I10 Essential (primary) hypertension; E78.5 Hyperlipidemia, unspecified; Z01.812 Encounter for preprocedural laboratory examination

== ENCOUNTER 2018-01-10 19:16 | Outpatient (CLI) | payer MEDICARE, OTHER ==
[~2018-01-10] VITALS: Ht 154.9 cm; Wt 72.6 kg
--- NOTE | ~2018-01-10 | DS ---
PATIENT:TRINI DOUGLAS :44 MEDICAL RECORD: [id number] DISCHARGE SUMMARY ADMISSION DATE: 01/10/18 DISCHARGE DATE: 01/11/18 DIAGNOSES: 1. Non-Q-wave myocardial infarction. 2. Coronary artery disease. 3. Percutaneous transluminal coronary angioplasty stent left anterior descending this admission. 4. Hypertension. 5. Hyperlipidemia. HISTORY: Mrs. Douglas presents with chest pain, has a minimal troponin elevation, underwent cardiac catheterization revealing 85% stenosis of the LAD, underwent successful PTCA stent of the LAD. No other significant disease is present, was discharged home with the addition of aspirin and Plavix to her medical regimen. She will follow up with [facility] in 1 month. TRANSINT:[id number] Voice Confirmation ID: [id number] DOCUMENT ID: [id number] JOSÉ LUIS JONES MD at 1208 CC: [id number] DICTATION DATE: 01/11/18 1126 BUILDING CONSTRUCTION TEACHER: 01/11/18 1228 DIS IN 01/11/18 [place] [address] [place] [address]
--- NOTE | ~2018-01-10 | OP ---
PATIENT NAME: TRINI DOUGLAS MEDICAL RECORD: [id number] :44 LOCATION:[id number] ADMISSION DATE:01/10/18 SURGEON: JOSÉ LUIS JONES MD DATE OF OPERATION: 01/11/2018 PROCEDURES: 1. PTCA stent LAD. 2. Left heart catheterization. 3. Selective coronary angiography. 4. Left ventriculogram. INDICATION: Angina and coronary artery disease. PROCEDURE IN DETAIL: After informed consent was obtained and after a detailed description of risks, benefits as well as alternative therapies, the patient elected to proceed with angiogram and angioplasty. The right radial area was prepped and draped in normal sterile fashion. Right radial artery was cannulated via modified Seldinger technique with placement of 6-German sheath. All catheters exchanged through this sheath. FINDINGS: Left ventriculogram was performed in standard 30-degree EAGLE view, reveals good cardiac wall motion throughout all segments. Overall ejection fraction estimated 60%. SELECTIVE CORONARY ANGIOGRAPHY: 1. Left main is with no significant angiographic disease. 2. Left anterior descending has previously placed stents, these are widely patent; however, there is 85% stenosis just proximal to the previously placed stents. 3. The left circumflex has moderate irregularities, but no flow-limiting stenosis. 4. The right coronary artery has previously placed stents. These are widely patent with no significant restenosis. No disease elsewise throughout the RCA or its branches. PTCA STENT OF THE LAD: The stent used was a 3.0 x 12 mm Porfirio. Result was 0% residual stenosis. OVERALL IMPRESSION: Successful percutaneous transluminal coronary angioplasty stent of the left anterior descending going from 85% initial stenosis to 0% residual. TRANSINT:[id number] Voice Confirmation ID: [id number] DOCUMENT ID: [id number] JOSÉ LUIS JONES MD at 1208 CC: [id number] DICTATION DATE: 01/11/18 1128 INSURANCE SPECIALIST: 01/11/18 1229 DIS IN 01/11/18 [place] [address]
--- NOTE | ~2018-01-10 | HEMODYNAMI ---
PATIENT:TRINI DOUGLAS MEDICAL RECORD: [id number] : 44 LOCATION:[facility]# [id number] ADMISSION DATE: 01/10/18 Generatedon:01/11/201811:27 Patient name: TRINI DOUGLAS Patient #: [id number] : 1940 Date of study: 01/11/2018 Page: Of Hemodynamic Procedure Report Patient Data Patient Demographics Procedure consent was obtained First Name: TRINI Gender: Female Last Name: MISAEL : 1940 [facility] Initial: R Age: 77 year(s) Patient #: [id number] Race: SSN: [id number] Additional ID: [id number] Contact details [address]: [address] [place] [address] State: [place] City: [place] Zip code: [address] Past Medical History Allergies Allergen Reaction Date Comments Reported Other allergy 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 Admission Admission Data Admission Date: 01/10/2018 Admission Time: 21:38 Admit Source: Emergency department Room #: D.E08 Weight (lbs.): 160 Weight (kg.): 72.57 Lab Results Lab Result Date: 01/11/2018 Lab Result Time: 8:32 Biochemistry Name Units Result Min Max BUN mg/dl 9 --(*---)-- 7 18 Creatinine mg/dl 0.7 --(*---)-- 0.6 1.3 Troponin l ng/ml 2.222 --(----)-* 0 0.06 CBC Name Units Result Min Max Hematocrit % 40.3 -*(----)-- 42 54 Hemoglobin g/dl 13.9 --(*---)-- 13.5 17.5 Procedure Procedure Types Cath Procedure Diagnostic Procedure [facility] w/Coronaries PCI Procedure Coronary Stent Coronary Stent Initial Procedure Description Procedure Date Procedure Date: 01/11/2018 Procedure Start Time: 11:15 Procedure End Time: 11:27 Procedure Staff Name Function Gus Mahmood MD Performing Physician Alexis Valadez RT Monitor Tacos Licnoa RN Nurse Procedure Data Cath Procedure Fluoroscopy Diagnostic fluoroscopy Total fluoroscopy Time: 2.4 time: 2.4 min min Diagnostic fluoroscopy Total fluoroscopy dose: 381 dose: 381 mGy mGy Contrast Material Contrast Material Type Amount (ml) Isovue 300 77 Entry Location Entry Primary Successful Side Size Upsize Upsize Entry Closure Spivey ccessful Closure Location (Fr) 1 (Fr) 2 (Fr) Remarks Device Remarks Radial Right 6 Fr Mechanical artery Short Compression Estimated blood loss: 10 ml Diagnostic catheters Device Type Used For End Catheter Placement DIAGNOSTIC Wagram 110cm 5 Procedure Fr catheter ([id number]) Procedure Complications No complications Procedure Medications Medication Administration Route Dosage Oxygen etCO2 Nasal cannula 2 l/min Heparin Flush Bag added to field 2 bags (1000units/500ml NS) 0.9% NaCl I.V. 100 ml/hr Zofran I.V. 4 mg Fentanyl I.V. 50 mcg Versed I.V. 1 mg Radial Cocktail added to field 1 syringe (Verapomil 2mg/Nitro 400mcg/Heparin 1500units) Radial Cocktail I.A. 1 syringe (Verapomil 2mg/Nitro 400mcg/Heparin 1500units) Fentanyl I.V. 50 mcg Versed I.V. 1 mg Heparin Bolus I.V. 4000 units Hemodynamics Rest HGB: 13.9 (g/dl) Heart Rate: 66 (bpm) Snapshots Pre Cath Intra NCS Post Cath Vital Signs Time Heart Resp SPO2 etCO2 NIBP Rhythm Pain Sedation Rate (ipm) (%) (mmHg) (mmHg) Status Level (bpm) 11:09:08 62 16 97 26.3 146/64(93) NSR 0 (11) 10(A) , No pain 11:13:55 67 17 95 39.1 118/53(84) NSR 0 (11) 10(A) , No pain 11:18:40 71 17 92 33 95/50(80) NSR 0 (11) 9(A) , No pain 11:24:05 70 16 93 38.3 132/55(96) NSR 0 (11) 9(A) , No pain Medications Time Medication Route Dose Verified Delivered Reason Not es Effectiveness by by 11:02:20 Oxygen etCO2 2 l/min Gus Balderrama Per physician Nasal Timoteo Licona RN cannula 11:02:32 Heparin Flush added 2 bags Gus Balderrama used for Bag to Timoteo Licona RN procedure (1000units/500ml field NS) 11:02:41 0.9% NaCl I.V. 100 Gus Balderrama Per physician ml/hr Timoteo Licona RN 11:09:06 Zofran I.V. 4 mg Gus Balderrama for nausea Timoteo Licona RN 11:13:37 Fentanyl I.V. 50 mcg Gus Balderrama for sedation Timoteo Licona RN 11:13:43 Versed I.V. 1 mg Gus Balderrama for sedation Timoteo Licona RN 11:16:46 Radial Cocktail added 1 Gus Balderrama used for (Verapomil to syringe Timoteo Licona RN procedure 2mg/Nitro field 400mcg/Heparin 1500units) 11:16:52 Radial Cocktail I.A. 1 Gus Weber for (Verapomil syringe Timoteo Mahmood MD vasodilation 2mg/Nitro 400mcg/Heparin 1500units) 11:19:13 Fentanyl I.V. 50 mcg Gus Balderrama for sedation Timoteo Licona RN 11:19:18 Versed I.V. 1 mg Gus Balderrama for sedation Timoteo Licona RN 11:21:30 Heparin Bolus I.V. 4000 Gus Balderrama for units Timoteo Licona RN anticoagulation Procedure Log Time Note 10:40:41 Fransico Matias RT(R) scrub 10:48:09 Informed consent obtained and on chart 10:48:12 Admit Source: Emergency department 10:48:43 Diagnostic Cath status Elective 10:49:10 Fransico Suit RT(R) sent for patient. Start room use. 10:49:12 Time tracking: Regular hours (M-F 7:00 - 5:00) 10:49:15 Plan of Care:Hemodynamics will remain stable., Cardiac rhythm will remain stable., Comfort level will be maintained., Respiratory function will remain adequate., Patient/ family verbilizes understanding of procedure., Procedure tolerated without complication., Recovers from procedure without complications.. 10:49:21 H&P Date Dictated: 01/11/2018 ER History on chart., New H&P dictated by physician.. 10:55:08 Patient received from ED to CCL 1 Alert and oriented. Tansferred to table in Supine position. 10:55:10 Warm blankets applied, and sherlyn hugger turned on for patient comfort. 10:55:17 Correct patient and procedure confirmed by team. 10:55:18 ECG and BP/O2 sat monitors applied to patient. 10:55:19 Pre-procedure instructions explained to patient. 10:55:20 Pre-op teaching completed and patient verbalized understanding. 10:55:21 Family in waiting room. 10:55:23 Patient NPO since Midnight. 11:02:20 Oxygen 2 l/min etCO2 Nasal cannula was administered by Tacos Licona RN; Per physician; 11:02:32 Heparin Flush Bag (1000units/500ml NS) 2 bags added to field was administered by Tacos Licona RN; used for procedure; 11:02:41 0.9% NaCl 100 ml/hr I.V. was administered by Tacos Licona RN; Per physician; 11:02:49 Vital chart was started 11:08:01 Vital chart was stopped 11:08:02 Vital chart was started 11:09:06 Zofran 4 mg I.V. was administered by Tacos Licona RN; for nausea; 11:10:31 Is the patient allergic to Iodine/contrast media? No. 11:10:32 Is patient on blood thinner?Yes 11:11:35 ACC The patient was administered the following blood thiners within the last 24 hours: ACCPlavix 11:11:48 Patient diabetic? Yes. 11:11:49 If diabetic: On Metformin? Yes 11:11:52 If on Metformin: Last Dose? 01/10/2018 11:11:55 Previous problem with sedation/anesthesia? No ? 11:11:56 Snore? Yes 11:11:58 Sleep apnea? No 11:11:59 Deviated septum? No 11:11:59 Opens mouth fully? Yes 11:12:00 Sticks out tongue? Yes 11:12:02 Airway obstruction? No ? 11:12:03 Dentures? No ? 11:12:06 Modified Balta's test Ulnar < 7 seconds 11:12:08 Patient pain scale 0/10 ?. 11:12:14 IV patent on arrival in right wrist with 0.9% NaCl at KVO. 11:12:39 Lab Result : BUN 9 mg/dl 11:12:39 Lab Result : Hemoglobin 13.9 g/dl 11:12:39 Lab Result : Creatinine 0.7 mg/dl 11:12:39 Lab Result : Hematocrit 40.3 % 11:12:41 Lab results completed and on chart. 11:12:43 Right Radial & Right Groin area was prepped with chlora-prep and draped in sterile fashion 11:12:44 Alarms reviewed by R. N. 11:12:44 Sharps counted by scrub and verified by R.N. 11:12:47 Use device set Radial Dx or PCI 11:12:48 ACIST Syringe (24595) opened to sterile field. 11:12:48 Medline Cath Pack ([id number]) opened to sterile field. 11:12:49 Bag Decanter (2002S) opened to sterile field. 11:12:49 ACIST Hand Control (86456) opened to sterile field. 11:12:50 ACIST Manifold (16538) opened to sterile field. 11:12:50 Tegaderm 4 x 4 (1626W) opened to sterile field. 11:12:51 MBrace Wrist Support ([id number]) opened to sterile field. 11:12:52 SHEATH 6Fr Prelude Radial ([id number]) opened to sterile field. 11:12:53 DIAGNOSTIC WIRE .035 260cm J wire (258597) opened to sterile field. 11:12:58 Baseline sample Acquired. 11:13:00 Rhythm: sinus rhythm 11:13:02 Full Disclosure recording started 11:13:05 Physician arrived 11:13:05 --------ALL STOP TIME OUT------ 11:13:05 Final Timeout: patient, procedure, and site verified with staff and physician. All members of the team are in agreement. 11:13:07 Right Radial & Right Groin site verified by team. 11:13:09 Physical assessment completed. ASA score P 2 - A patient with mild systemic disease as per Gus Mahmood MD. 11:13:11 Sedation plan: IV Moderate Sedation Medication:Versed, Fentanyl 11:13:37 Fentanyl 50 mcg I.V. was administered by Tacos Licona RN; for sedation; 11:13:43 Versed 1 mg I.V. was administered by Tacos Licona RN; for sedation; 11:14:20 Lab Result : Troponin l 2.222 ng/ml 11:15:51 Procedure started. 11:15:55 Local anesthetic to right radial artery with Lidocaine 2% by Gus Mahmood MD.INITIAL ACCESS ONLY 11:16:04 A 6 Fr Short sheath was inserted into the Right Radial artery 11:16:08 Zero performed for pressure channel P1 11:16:46 Radial Cocktail (Verapomil 2mg/Nitro 400mcg/Heparin 1500units) 1 syringe added to field was administered by Tacos Licona RN; used for procedure; 11:16:52 Radial Cocktail (Verapomil 2mg/Nitro 400mcg/Heparin 1500units) 1 syringe I.A. was administered by Gus Mahmood MD; for vasodilation; 11:16:55 A DIAGNOSTIC Wagram 110cm 5 Fr catheter (105053) was advanced over the wire and used for Procedure. 11:17:40 LV gram done using EAGLE 11:17:42 Injector settings: Ml/sec: 10, Volume: 20, 11:17:48 EF : 60 % 11:18:15 LCA angiography performed. 11:19:13 Fentanyl 50 mcg I.V. was administered by Tacos Licona RN; for sedation; 11:19:18 Versed 1 mg I.V. was administered by Tacos Licona RN; for sedation; 11:19:49 Catheter exchanged over wire. 11:19:57 CHOICE PT Extra Support 182cm wire ([id number]) opened to sterile field. 11:19:58 INFLATOR Merit BasixCompak (QD1900) opened to sterile field. 11:20:32 GUIDE 6FR EBU 3.5 catheter ([id number]) opened to sterile field. 11:20:40 6 Fr ebu 3.5 guide catheter was inserted over the wire 11:20:59 choice pt es wire advanced. 11:21:30 Heparin Bolus 4000 units I.V. was administered by Tacos Licona RN; for anticoagulation; 11:21:54 Wire advanced across lesion. 11:23:07 Place stent Inflation Number: 1 A FRANSICO RX 3.0 x 12 stent ([id number]) was prepped and advanced across the Prox LAD. The stent was deployed at 15 ANDREA for 0:10 (min:sec). 11:23:18 TR BAND Standard ([id number]) opened to sterile field. 11:23:20 Stent catheter was removed intact over wire. 11:23:21 Wire removed. 11:23:21 Guide catheter removed. 11:23:28 Sheath removed intact; hemostasis achieved with Mechanical Compression to the Right Radial artery. 11:23:29 Procedure ended.(Physican Out) 11:25:37 Fluoroscopy time 02.40 minutes. 11::42 Fluoroscopy dose: 381 mGy 11::42 Flurop Dose total: 381 11:25:46 Contrast amount:Isovue 300 77ml. 11:25:48 Sharps counted by scrub and verified by R.N. 11:26:02 TR band inflated with 14cc of air. 11:26:05 Insertion/operative site no bleeding no hematoma. 11:26:08 Post Procedure Pulses reassessed and unchanged 11:26:10 Post-procedure physical assessment completed. ASA score P 2 - A patient with mild systemic disease as per Gus Mahmood MD. 11:26:12 Post procedure rhythm: unchanged. 11:26:15 Estimated blood loss: 10 ml 11:26:16 Post procedure instruction explained to patient.Patient verbalizes understanding. 11:26:17 Patient needs reinforcement of post procedure teaching. 11:26:28 Procedure type changed to Cath procedure, Diagnostic procedure, LHC, LHC w/Coronaries, PCI procedure, Coronary Stent, Coronary Stent Initial 11:26:49 Procedure and supply charges have been captured, reviewed, submitted and are correct. 11:26:56 Patient Weight : 160 lbs 11:27:00 Procedure Complication : No complications 11:27:02 See physician's report for complete and final results. 11:27:03 Report given to Pre/Post Procedure Room. 11:27:05 Patient transfered to Pre/Post Procedure Room with Stretcher. 11:27:07 Procedure ended. 11:27:07 Full Disclosure recording stopped 11:27:09 End room use (Document Last) 11:27:24 Vital chart was stopped Intervention Summary Intervention Notes Time ActionType Lesion and Equipment Used Action# Pressure Duration Attributes 11:23:[address] Place stent Prox LAD FRANSICO RX 3.0 x 1 15 00:10 12 stent ([id number]) Device Usage Item Name Manufacture Quantity Catalog Number Hospital Part Current Minimal Lot# / Charge Number Stock Stock Serial# Code ACIST Syringe Acist 1 [id number] [id number] 501053 237113 20 (99913) [employer] Medline Cath Cardinal 1 [id number] 376053 04426 696683 5 [facility] ([id number]) Bag Decanter Microtek 1 2001S 846890 67880 548491 5 (2001S) Medical Inc. ACIST Hand Acist 1 34945 687126 084489 269871 5 Control (79918) [employer] ACIST Manifold Acist 1 87697 005312 034109 539999 5 (89990) [employer] Tegaderm 4 x 4 3M 1 1626W 368556 038140 019261 5 (1626W) MBrace Wrist Advanced 1 140-0250-00 269431 62060 379349 5 Support Vascular ([id number]) Dynamics SHEATH 6Fr Merit 1 [id number] 151955 757101 541709 5 Prelude Radial Medical ([id number]) DIAGNOSTIC WIRE St Tai 1 298751 224160 383516 565971 30 .035 260cm J wire (523862) DIAGNOSTIC Terumo 1 40-9244 301401 470671 715308 5 Wagram 110cm 5 Fr catheter (710928) CHOICE PT Extra Rector 1 [id number] 374146 837207 594297 5 Support 182cm Scientific wire ([id number]) INFLATOR Merit Merit 1 [id number] 099116 709612 124844 15 [facility] Medical ([id number]) GUIDE 6FR EBU Medtronic 1 [id number] 684195 19007 749418 3 3.5 catheter ([id number]) FRANSICO RX 3.0 x Medtronic 1 [id number] 556028 3768556 290510 5 [id number] 12 stent ([id number]) TR BAND Terumo 1 [id number] 857190 650768 140102 40 Standard ([id number]) Signature Audit [place]worth Stage Time Signature Unsigned Intra-Procedure 01/11/2018 Alexis Valadez 11:27:21 AM RT(R) Signatures Monitor : Alexis Valadez RT Signature : Date : Time : [address] [place] [address]
[2018-01-10 20:17] LABS: BASOPHILS 0.3 % (0-2); EOSINOPHILS 1.9 % (0-7); HEMATOCRIT 37.9 % (36.0-48.0); HEMOGLOBIN 12.9 g/dL (12-16); IMMATURE GRANULOCYTES 0.1 % (0-5); LYMPHOCYTES 26.5 % (15-50); MCH 29.7 pg (26.0-34.0); MCV 87.1 fL (80.0-100.0); MEAN PLATELET VOLUME 10.4 fL (7.4-10.4); MONOCYTES 8.4 % (2-11); NEUTROPHILS 62.8 % (40-80); PLATELET COUNT 137 10x3/uL (130-400); RBC 4.35 10x6/uL (4.00-5.40); RDW 12.9 % (11.5-14.5)
[2018-01-10 20:20] LABS: APTT 26.6 SECONDS (22.8-39.4); INR 0.97 (0.85-1.17); PROTIME 12.5 SECONDS (11.6-15.0)
[2018-01-10 20:32] LABS: ALBUMIN 3.7 g/dL (3.4-5.0); ALKALINE PHOSPHATASE 87 U/L (46-116); ALT (SGPT) 20 U/L (10-68); BILIRUBIN - TOTAL 0.38 mg/dL (0.2-1.3); CALC OSMOLALITY 265 mosm/kg (275-300); CALCIUM 8.8 mg/dL (8.5-10.1); CARBON DIOXIDE 25.2 mmol/L (21.0-32.0); CHLORIDE - SERUM 96 mmol/L (98-107); CREATININE - SERUM 0.5 mg/dL (0.6-1.3); GLUCOSE 116 mg/dL (74-106); POTASSIUM - SERUM 3.5 mmol/L (3.5-5.1); PROTEIN - SERUM 7.2 g/dL (6.4-8.2); SODIUM 132 mmol/L (136-145); UREA NITROGEN 12 mg/dL (7-18); eGFR NON AFRICAN AMERICAN > 90 mL/min (90-120)
[2018-01-10 20:43] VITALS: BP 167/67
[2018-01-10 20:45] LABS: CKMB 3.5 U/L (0.0-3.6); CREATINE KINASE 100 UL (21-215); PRO BNP 37 pg/mL (0-450)
[2018-01-10 21:31] VITALS: BP 125/65
[2018-01-10 22:31] VITALS: BP 147/68
[2018-01-10 23:31] VITALS: BP 166/77
[2018-01-11] VITALS (8 sets, daily range): BP systolic 111–177; BP diastolic 50–78; Ht 154.9 cm; Wt 72.6 kg
[2018-01-11 03:59] LABS: TROPONIN-I 2.222 ng/mL (0.000-0.060)
[2018-01-11 08:49] LABS: BASOPHILS 0.3 % (0-2); EOSINOPHILS 1.7 % (0-7); HEMATOCRIT 40.3 % (36.0-48.0); HEMOGLOBIN 13.9 g/dL (12-16); IMMATURE GRANULOCYTES 0.3 % (0-5); LYMPHOCYTES 34.1 % (15-50); MCH 30.2 pg (26.0-34.0); MCHC 34.5 g/dL (31.0-37.0); MCV 87.4 fL (80.0-100.0); MEAN PLATELET VOLUME 10.5 fL (7.4-10.4); MONOCYTES 7.9 % (2-11); NEUTROPHILS 55.7 % (40-80); PLATELET COUNT 152 10x3/uL (130-400); RBC 4.61 10x6/uL (4.00-5.40); RDW 13.2 % (11.5-14.5); WBC 7.8 10x3/uL (4.8-10.8)
[2018-01-11 09:25] LABS: CALC OSMOLALITY 275 mosm/kg (275-300); CALCIUM 9.2 mg/dL (8.5-10.1); CARBON DIOXIDE 29.2 mmol/L (21.0-32.0); CHLORIDE - SERUM 99 mmol/L (98-107); CKMB 10.4 U/L (0.0-3.6); GLUCOSE 114 mg/dL (74-106); SODIUM 138 mmol/L (136-145); UREA NITROGEN 9 mg/dL (7-18)
[2018-01-11 09:28] LABS: CREATINE KINASE 246 UL (21-215); CREATININE - SERUM 0.7 mg/dL (0.6-1.3); POTASSIUM - SERUM 4.1 mmol/L (3.5-5.1); eGFR NON AFRICAN AMERICAN 86 mL/min (90-120)
[2018-01-11 09:29] LABS: TROPONIN-I 1.634 ng/mL (0.000-0.060)
== END 2018-01-11 15:40 | disposition home or self-care (01) ==
LOC: OBSVTIME → D.ER 19:16 → D.CATH 19:16 → D.EDHOLD 21:38 → OBSVTIME 21:38 → D.ER 21:38 → EDSTATUS 01-11 09:00 → D.ER 01-11 10:47 → D.EDHOLD 01-11 11:33 → D.CLR 01-11 11:33 → D.CATH 01-11 15:40 → D.CLR 01-11 15:40
PROVIDERS: Family Medicine; Internal Medicine Interventional Cardiology
DX: I21.4 Non-ST elevation (NSTEMI) myocardial infarction (principal); I25.119 Atherosclerotic heart disease of native coronary artery with unspecified angina pectoris; I10 Essential (primary) hypertension; E11.9 Type 2 diabetes mellitus without complications; E78.5 Hyperlipidemia, unspecified
CPT/HCPCS: 93458; C9600